=== PATIENT | male | born 1980 | race Caucasian/White ===

== ENCOUNTER 2020-01-03 19:46 | Inpatient (IN) ==
[2020-01-03] MEDS ORDERED: SODIUM CHLORIDE 0.9% 1,000 ML IV STA (20:08)
[2020-01-03] MEDS ORDERED: ONDANSETRON 4 MG/2 ML VIAL IV STA (20:08)
[2020-01-03] MEDS ORDERED: MORPHINE 4 MG/1 ML VIAL IV STA ×2 (20:31→23:19)
[2020-01-03 21:02] LABS: Basophils % 0.2 % (0.0-0.8); Hematocrit 42.2 VOL% (42.0-52.0); Hemoglobin 14.1 GM/DL (14.0-18.0); Immature Granulocytes % 2.5 %; Immature Granulocytes Absolute 0.53 #; Lymphocytes # 2.4 10*3/uL (1.4-4.0); Lymphocytes % 11.2 % (21.2-54.2); Mean Corpuscular HGB Conc 33.4 GM/DL (32-36); Mean Corpuscular Volume 104.5 FL (87-102); Mean Platelet Volume 8.9 FL (9.6-12.0); Monocytes % 9.6 % (1.7-12.7); Neutrophils % 76.5 % (38.7-73.9); Platelet Count 580 T/CUMM (130-400); Red Blood Count 4.04 MC/CUMM (3.8-5.5); Red Cell Distribution Width 12.7 % (9.3-17.3); White Blood Count 21.5 T/CUMM (4-12)
[2020-01-03] MEDS ORDERED: PANTOPRAZOLE INJ 80 MG in SODIUM CHLORIDE 0.9% 100 ML IV ONE (21:03)
[2020-01-03 21:24] LABS: Lymphocytes 11 % (20-55); Platelet Estimate Increased; Segmented Neutrophils 78 % (50-85); Total Cells Counted 100
[2020-01-03 21:29] LABS: Alanine Aminotransferase 81 U/L (16-61); Albumin 1.8 G/DL (3.4-5.0); Alkaline Phosphatase 228 U/L (45-117); Aspartate Amino Transferase 30 U/L (0-37); Bilirubin,Total < 0.39 MG/DL (0.2-1.0); Blood Urea Nitrogen 14 MG/DL (7-18); Calcium 8.4 MG/DL (8.5-10.1); Estimated Glom Filtration Rate 152 ML/MIN; Glucose 106 MG/DL (74-106); Osmolality,Calculated 264.5 MOS/KG (273-304); Total Protein 7.5 G/DL (6.4-8.3)
[2020-01-03] MEDS ORDERED: PANTOPRAZOLE INJ 200 MG in SODIUM CHLORIDE 0.9% 250 ML IV SCH (21:30)
[2020-01-03] MEDS ORDERED: LEVOFLOXACIN INJ 750 MG in PREMIX 1 EACH IV STA (21:32)
[2020-01-03] MEDS ORDERED: PANTOPRAZOLE 40 MG VIAL IV ONE (21:46)
[2020-01-03 22:26] LABS: Apearance,Urine CLEAR (Clear); Bilirubin,Urine Negative (Negative); Blood, Urine Negative (Negative); Glucose,Urine (UA) Negative (Negative); Ketones,Urine Negative (Negative); Mucus,Urine Few /LPF (Occasional); Nitrite,Urine Negative (Negative); Protein,Urine Negative; RBC,Urine 1 /HPF (0-4); Urine Color Yellow (Yellow); Urine Specific Gravity 1.023 (1.001-1.035); Urine Urobilinogen < 2.0 EU/DL (0.2-1.0); WBC,Urine 1 /HPF (0-6)
[2020-01-03] MEDS ORDERED: ALBUTEROL 2.5 MG/3 ML NEB RESP TX PRN (23:36)
[2020-01-04] MEDS ORDERED: ACETAMINOPHEN 325 MG TABLET PO PRN (00:08)
[2020-01-04] MEDS: HYDROmorphone 2 MG/1 ML VIAL IV PRN ×11 (01:14→23:36)
[2020-01-04] MEDS: PIPERACILLIN/TAZOBACTAM 3,375 MG in SODIUM CHLORIDE 0.9% 100 ML IV SCH ×3 (01:15→17:24)
[2020-01-04] MEDS: SODIUM CHLORIDE 0.9% 1,000 ML IV SCH ×3 (01:15→15:29)
[2020-01-04] MEDS: ALBUTEROL/IPRATROPIUM 3 ML NEB RESP TX SCH ×4 (03:47→19:21)
[2020-01-04 07:00] LABS: Basophils % 0.2 % (0.0-0.8); Eosinophils % 0.1 % (0.00-10.9); Hematocrit 36.5 VOL% (42.0-52.0); Hemoglobin 12.5 GM/DL (14.0-18.0); Immature Granulocytes % 2.1 %; Immature Granulocytes Absolute 0.39 #; Lymphocytes # 1.8 10*3/uL (1.4-4.0); Mean Corpuscular HGB Conc 34.2 GM/DL (32-36); Mean Corpuscular Volume 103.1 FL (87-102); Mean Platelet Volume 8.8 FL (9.6-12.0); Monocytes % 10.8 % (1.7-12.7); Neutrophils % 76.8 % (38.7-73.9); Platelet Count 473 T/CUMM (130-400); Red Blood Count 3.54 MC/CUMM (3.8-5.5); Red Cell Distribution Width 12.7 % (9.3-17.3); White Blood Count 18.2 T/CUMM (4-12)
[2020-01-04 07:10] LABS: INR 1.1; PT Patient Result 11.5 SECS (9.6-12.2)
[2020-01-04 07:26] LABS: Albumin 1.5 G/DL (3.4-5.0); Bilirubin,Total 0.5 MG/DL (0.2-1.0); Calcium 8.4 MG/DL (8.5-10.1); Osmolality,Calculated 259.7 MOS/KG (273-304); Total Protein 6.5 G/DL (6.4-8.3)
[2020-01-04] MEDS: PANTOPRAZOLE 40 MG VIAL IV SCH ×2 (08:07→20:51)
[2020-01-04] MEDS ORDERED: BUPIVACAINE MPF 0.25% 30 ML VIAL ONE (12:02)
[2020-01-04] MEDS ORDERED: LIDOCAINE 1%/EPI INJ 20 ML VIAL ONE (12:02)
[2020-01-04] MEDS ORDERED: LIDOCAINE 2% 5 ML VIAL ONE (13:08)
[2020-01-04] MEDS ORDERED: propofoL 200 MG/20 ML VIAL IV ONE (13:08)
[2020-01-04] MEDS ORDERED: MIDAZOLAM 2 MG/2 ML VIAL ONE (13:09)
[2020-01-04] MEDS ORDERED: fentaNYL 100 MCG/2 ML VIAL ONE (13:09)
[2020-01-04] MEDS ORDERED: ONDANSETRON 4 MG/2 ML VIAL ONE (13:15)
[2020-01-04] MEDS ORDERED: ONDANSETRON 4 MG/2 ML VIAL IV PRN (13:15)
[2020-01-04] MEDS ORDERED: HYDROmorphone 2 MG/1 ML VIAL ONE (13:15)
[2020-01-04] MEDS ORDERED: predniSONE 20 MG TABLET PO SCH (15:00)
[2020-01-04] MEDS ORDERED: tiZANidine 4 MG TABLET PO SCH (15:00)
[2020-01-04] MEDS ORDERED: [UNRECOGNIZED DRUG - OTHER] PO SCH (15:00)
[2020-01-04] MEDS: [UNRECOGNIZED DRUG - OTHER] PO SCH (17:24)
[2020-01-04] MEDS: LEVOFLOXACIN INJ 750 MG in PREMIX 1 EACH IV SCH (20:51)
[2020-01-05] MEDS: SODIUM CHLORIDE 0.9% 1,000 ML IV SCH ×3 (00:13→17:16)
[2020-01-05] MEDS: PIPERACILLIN/TAZOBACTAM 3,375 MG in SODIUM CHLORIDE 0.9% 100 ML IV SCH ×3 (00:13→17:16)
[2020-01-05] MEDS: ALBUTEROL/IPRATROPIUM 3 ML NEB RESP TX SCH ×4 (00:27→19:26)
[2020-01-05] MEDS: HYDROmorphone 2 MG/1 ML VIAL IV PRN ×9 (01:59→21:43)
[2020-01-05 06:02] LABS: Basophils % 0.2 % (0.0-0.8); Eosinophils % 0.1 % (0.00-10.9); Hematocrit 37.3 VOL% (42.0-52.0); Hemoglobin 12.3 GM/DL (14.0-18.0); Immature Granulocytes % 1.7 %; Immature Granulocytes Absolute 0.42 #; Lymphocytes # 1.6 10*3/uL (1.4-4.0); Lymphocytes % 6.4 % (21.2-54.2); Mean Corpuscular Volume 105.1 FL (87-102); Mean Platelet Volume 8.9 FL (9.6-12.0); Monocytes % 7.5 % (1.7-12.7); Neutrophils % 84.1 % (38.7-73.9); Platelet Count 475 T/CUMM (130-400); Red Blood Count 3.55 MC/CUMM (3.8-5.5); Red Cell Distribution Width 12.5 % (9.3-17.3)
[2020-01-05 06:23] LABS: Platelet Estimate Adequate
[2020-01-05 06:26] LABS: Albumin 1.3 G/DL (3.4-5.0); Bilirubin,Total 0.7 MG/DL (0.2-1.0); Calcium 8.2 MG/DL (8.5-10.1); Osmolality,Calculated 254.1 MOS/KG (273-304); Total Protein 6.2 G/DL (6.4-8.3)
[2020-01-05] MEDS: PANTOPRAZOLE 40 MG VIAL IV SCH ×2 (08:37→21:41)
[2020-01-05] MEDS ORDERED: MAGNESIUM SULF RIDER 2 GM in PREMIX 1 EACH IV ONE (11:13)
[2020-01-05] MEDS: [UNRECOGNIZED DRUG - OTHER] PO SCH (17:23)
[2020-01-05] MEDS: LEVOFLOXACIN INJ 750 MG in PREMIX 1 EACH IV SCH (21:42)
[2020-01-06] MEDS: ALBUTEROL/IPRATROPIUM 3 ML NEB RESP TX SCH ×4 (00:47→19:41)
[2020-01-06] MEDS: HYDROmorphone 2 MG/1 ML VIAL IV PRN ×5 (01:51→20:28)
[2020-01-06] MEDS: PIPERACILLIN/TAZOBACTAM 3,375 MG in SODIUM CHLORIDE 0.9% 100 ML IV SCH ×3 (01:57→16:11)
[2020-01-06 05:15] LABS: Basophils % 0.1 % (0.0-0.8); Eosinophils % 0.1 % (0.00-10.9); Hematocrit 35.6 VOL% (42.0-52.0); Hemoglobin 11.6 GM/DL (14.0-18.0); Immature Granulocytes % 1.4 %; Immature Granulocytes Absolute 0.33 #; Lymphocytes # 1.6 10*3/uL (1.4-4.0); Lymphocytes % 6.9 % (21.2-54.2); Mean Corpuscular HGB Conc 32.6 GM/DL (32-36); Mean Corpuscular Volume 104.7 FL (87-102); Monocytes % 5.7 % (1.7-12.7); Neutrophils % 85.8 % (38.7-73.9); Platelet Count 476 T/CUMM (130-400); Red Cell Distribution Width 12.3 % (9.3-17.3); White Blood Count 23.1 T/CUMM (4-12)
[2020-01-06 05:43] LABS: Calcium 8.2 MG/DL (8.5-10.1); Osmolality,Calculated 261.5 MOS/KG (273-304)
[2020-01-06 06:16] LABS: Hypochromasia 1+; Lymphocytes 6 % (20-55); Platelet Estimate Adequate; Segmented Neutrophils 90 % (50-85); Total Cells Counted 100
[2020-01-06] MEDS: MAGNESIUM HYDROXIDE SUSP 30 ML UDCUP PO PRN (09:20)
[2020-01-06] MEDS: PANTOPRAZOLE 40 MG VIAL IV SCH ×2 (09:20→20:29)
[2020-01-06] MEDS: BISACODYL 5 MG TABLET PO PRN ×2 (12:44→16:38)
[2020-01-06] MEDS: SODIUM CHLORIDE 0.9% 1,000 ML IV SCH ×2 (16:12→18:30)
[2020-01-06] MEDS: [UNRECOGNIZED DRUG - OTHER] PO SCH (18:34)
[2020-01-06] MEDS: LEVOFLOXACIN INJ 750 MG in PREMIX 1 EACH IV SCH (20:30)
[2020-01-07] MEDS: HYDROmorphone 2 MG/1 ML VIAL IV PRN ×9 (00:13→23:25)
[2020-01-07] MEDS: PIPERACILLIN/TAZOBACTAM 3,375 MG in SODIUM CHLORIDE 0.9% 100 ML IV SCH ×3 (00:18→18:08)
[2020-01-07] MEDS: ALBUTEROL/IPRATROPIUM 3 ML NEB RESP TX SCH ×4 (01:08→19:15)
[2020-01-07] MEDS: BISACODYL 5 MG TABLET PO PRN ×4 (03:26→20:58)
[2020-01-07 06:02] LABS: Basophils % 0.2 % (0.0-0.8); Eosinophils # 0.1 10*3/uL (0.0-0.87); Eosinophils % 0.5 % (0.00-10.9); Hematocrit 33.1 VOL% (42.0-52.0); Immature Granulocytes % 1.2 %; Immature Granulocytes Absolute 0.21 #; Lymphocytes # 1.8 10*3/uL (1.4-4.0); Mean Corpuscular HGB Conc 33.2 GM/DL (32-36); Mean Corpuscular Volume 103.4 FL (87-102); Mean Platelet Volume 8.9 FL (9.6-12.0); Monocytes % 7.7 % (1.7-12.7); Neutrophils % 80.4 % (38.7-73.9); Platelet Count 520 T/CUMM (130-400); Red Cell Distribution Width 12.3 % (9.3-17.3); White Blood Count 17.6 T/CUMM (4-12)
[2020-01-07 06:25] LABS: Calcium 8.1 MG/DL (8.5-10.1); Osmolality,Calculated 262.4 MOS/KG (273-304)
[2020-01-07] MEDS: PANTOPRAZOLE 40 MG VIAL IV SCH ×2 (09:22→20:58)
[2020-01-07] MEDS: [UNRECOGNIZED DRUG - OTHER] PO SCH (18:08)
[2020-01-07] MEDS: LEVOFLOXACIN INJ 750 MG in PREMIX 1 EACH IV SCH (22:18)
[2020-01-08] MEDS: ALBUTEROL/IPRATROPIUM 3 ML NEB RESP TX SCH ×5 (00:13→22:50)
[2020-01-08] MEDS: HYDROmorphone 2 MG/1 ML VIAL IV PRN ×9 (01:33→22:15)
[2020-01-08] MEDS: PIPERACILLIN/TAZOBACTAM 3,375 MG in SODIUM CHLORIDE 0.9% 100 ML IV SCH ×3 (01:37→17:17)
[2020-01-08 05:30] LABS: Basophils % 0.3 % (0.0-0.8); Eosinophils # 0.1 10*3/uL (0.0-0.87); Eosinophils % 0.9 % (0.00-10.9); Hematocrit 34.2 VOL% (42.0-52.0); Hemoglobin 11.4 GM/DL (14.0-18.0); Immature Granulocytes % 1.3 %; Lymphocytes % 12.9 % (21.2-54.2); Mean Corpuscular HGB Conc 33.3 GM/DL (32-36); Mean Platelet Volume 8.7 FL (9.6-12.0); Monocytes % 8.2 % (1.7-12.7); Neutrophils % 76.4 % (38.7-73.9); Platelet Count 548 T/CUMM (130-400); Red Blood Count 3.32 MC/CUMM (3.8-5.5); Red Cell Distribution Width 12.3 % (9.3-17.3); White Blood Count 15.8 T/CUMM (4-12)
[2020-01-08 05:55] LABS: Calcium 8.6 MG/DL (8.5-10.1); Osmolality,Calculated 257.8 MOS/KG (273-304)
[2020-01-08] MEDS: PANTOPRAZOLE 40 MG VIAL IV SCH ×2 (09:06→20:12)
[2020-01-08] MEDS: BISACODYL 5 MG TABLET PO PRN ×2 (12:12→20:12)
[2020-01-08] MEDS: [UNRECOGNIZED DRUG - OTHER] PO SCH (17:16)
[2020-01-08] MEDS: LEVOFLOXACIN INJ 750 MG in PREMIX 1 EACH IV SCH (20:11)
[2020-01-08] MEDS: SODIUM CHLORIDE 1 GM TABLET PO SCH (20:11)
[2020-01-08] MEDS: TEMAZEPAM 15 MG CAPSULE PO PRN (22:15)
[2020-01-09] MEDS: HYDROmorphone 2 MG/1 ML VIAL IV PRN ×10 (00:25→22:36)
[2020-01-09] MEDS: PIPERACILLIN/TAZOBACTAM 3,375 MG in SODIUM CHLORIDE 0.9% 100 ML IV SCH ×3 (00:26→18:15)
[2020-01-09] MEDS: ALBUTEROL/IPRATROPIUM 3 ML NEB RESP TX SCH ×4 (01:15→19:50)
[2020-01-09] MEDS: BISACODYL 5 MG TABLET PO PRN (10:28)
[2020-01-09] MEDS: SODIUM CHLORIDE 1 GM TABLET PO SCH ×2 (10:29→20:33)
[2020-01-09] MEDS: PANTOPRAZOLE 40 MG VIAL IV SCH ×2 (10:30→20:33)
[2020-01-09] MEDS: [UNRECOGNIZED DRUG - OTHER] PO SCH (18:15)
[2020-01-09] MEDS: LEVOFLOXACIN INJ 750 MG in PREMIX 1 EACH IV SCH (20:34)
[2020-01-09] MEDS ORDERED: MELATONIN 3 MG TABLET PO SCH (21:00)
[2020-01-09] MEDS: TEMAZEPAM 15 MG CAPSULE PO PRN (23:19)
[2020-01-10] MEDS: ALBUTEROL/IPRATROPIUM 3 ML NEB RESP TX SCH ×3 (01:10→14:10)
[2020-01-10] MEDS: HYDROmorphone 2 MG/1 ML VIAL IV PRN ×4 (01:26→09:13)
[2020-01-10 04:48] LABS: Basophils % 0.3 % (0.0-0.8); Eosinophils # 0.1 10*3/uL (0.0-0.87); Eosinophils % 0.9 % (0.00-10.9); Hematocrit 37.9 VOL% (42.0-52.0); Hemoglobin 12.6 GM/DL (14.0-18.0); Immature Granulocytes % 1.5 %; Lymphocytes # 2.2 10*3/uL (1.4-4.0); Lymphocytes % 16.7 % (21.2-54.2); Mean Corpuscular HGB Conc 33.2 GM/DL (32-36); Mean Corpuscular Volume 103.6 FL (87-102); Mean Platelet Volume 8.5 FL (9.6-12.0); Monocytes % 8.7 % (1.7-12.7); Neutrophils % 71.9 % (38.7-73.9); Platelet Count 592 T/CUMM (130-400); Red Blood Count 3.66 MC/CUMM (3.8-5.5); Red Cell Distribution Width 12.3 % (9.3-17.3); White Blood Count 13.4 T/CUMM (4-12)
[2020-01-10 05:11] LABS: Calcium 9.4 MG/DL (8.5-10.1); Osmolality,Calculated 257.9 MOS/KG (273-304)
[2020-01-10] MEDS: SODIUM CHLORIDE 1 GM TABLET PO SCH (09:13)
[2020-01-10] MEDS: BISACODYL 5 MG TABLET PO PRN ×2 (09:13→13:37)
[2020-01-10] MEDS: PANTOPRAZOLE 40 MG VIAL IV SCH (09:13)
[2020-01-10] MEDS: PIPERACILLIN/TAZOBACTAM 3,375 MG in SODIUM CHLORIDE 0.9% 100 ML IV SCH ×2 (09:15)
[2020-01-10] MEDS: MAGNESIUM HYDROXIDE SUSP 30 ML UDCUP PO PRN (12:27)
[2020-01-10 13:43] VITALS: BP 108/56
== END 2020-01-10 15:10 | disposition home or self-care (01) | DRG 177 ==
LOC: EDUNIT# → N.ED 19:46 → SUATTDRO 23:36 → N.EDINP 23:36 → N.CC 01-04 00:42 → N.3E 01-05 11:56
PROVIDERS: ADMIT Internal Medicine; ATTEND Internal Medicine